=== PATIENT | male | born 1995 | race Caucasian/White ===

== ENCOUNTER 2017-12-21 15:44 | Emergency (ER) | payer MEDICAID, OTHER | END 2017-12-21 16:41 | disposition home or self-care (01) | LOC: E/R 15:44 | DX: L60.0 Ingrowing nail (principal); J45.909 Unspecified asthma, uncomplicated | CPT/HCPCS: 99283; Z7502 ==

== ENCOUNTER 2018-03-23 16:43 | Emergency (ER) | payer SELFPAY, MEDICAID ==
[2018-03-23] MEDS: HYDROCODONE/APAP (5/325) TAB PO (18:15)
== END 2018-03-23 20:14 | disposition home or self-care (01) ==
LOC: FTE 16:43
DX: S09.90XA Unspecified injury of head, initial encounter (principal); S39.92XA Unspecified injury of lower back, initial encounter; S29.001A Unspecified injury of muscle and tendon of front wall of thorax, initial encounter; S16.9XXA Unspecified injury of muscle, fascia and tendon at neck level, initial encounter; J45.909 Unspecified asthma, uncomplicated; R51 Headache; V49.40XA Driver injured in collision with unspecified motor vehicles in traffic accident, initial encounter
CPT/HCPCS: 70450; 71045; 72100; 72125; 99285-25

== ENCOUNTER 2018-05-23 21:05 | Emergency (ER) | payer SELFPAY | END 2018-05-24 01:00 | disposition left against medical advice (07) | LOC: FTE 21:05 | DX: Z53.21 Procedure and treatment not carried out due to patient leaving prior to being seen by health care provider (principal) ==

== ENCOUNTER 2018-10-10 02:28 | Emergency (ER) | payer SELFPAY ==
[2018-10-10] MEDS: DIPHTH/TET/ACEL PERTUSS (ADULT) 0.5 ML VIAL IM* (03:08)
[2018-10-10] MEDS ORDERED: BACITRACIN/POLYMYXIN 0.9 GM OINT (04:01)
== END 2018-10-10 04:43 | disposition home or self-care (01) ==
LOC: E/R 02:28
DX: S01.01XA Laceration without foreign body of scalp, initial encounter (principal); F10.920 Alcohol use, unspecified with intoxication, uncomplicated; S60.411A Abrasion of left index finger, initial encounter; R40.2142 Coma scale, eyes open, spontaneous, at arrival to emergency department; R40.2252 Coma scale, best verbal response, oriented, at arrival to emergency department; R40.2362 Coma scale, best motor response, obeys commands, at arrival to emergency department; J45.909 Unspecified asthma, uncomplicated; W18.09XA Striking against other object with subsequent fall, initial encounter; Y92.480 Sidewalk as the place of occurrence of the external cause; Z23 Encounter for immunization
CPT/HCPCS: 12002; 70450; 72125; 73130-LT; 90471; 90715; 99284-25